=== PATIENT | female | born 1950 | race Hispanic/Latino ===

== ENCOUNTER 2017-12-16 13:34 | Outpatient (CLI) | payer OTHER, MEDICARE ==
--- NOTE | 2017-12-16 15:43 | Ultrasound Report ---
BILATERAL BREAST ULTRASOUND: 12/16/17 13:34:00 CLINICAL: Bilateral circumscribed densities on recent mammogram. COMPARISON: 09/16/17 screening mammogram FINDINGS: Ultrasound of the right breast(including all four quadrants and the retroareolar area) was performed and demonstrated numerous benign cysts which correspond to the mammographic findings. A retroareolar cyst measures 1.8 x 1.5 x 1.1 cm. The distal retroareolar cysts measure 5 x 6 x 5 mm and 10 x 7 x 9 mm. A cyst at 6 o'clock 3 cm from the nipple measures 7 x 3 x 6 mm. A cyst at 8 o'clock 7.5 cm from the nipple measures 4 x 4 x 5 mm. A cyst at 10 o'clock measures 8 x 5 x 9 mm and a cyst with a thick echogenic wall at 11 o'clock 5 cm from the nipple measures 1.5 x 1.3 x 1.5 cm. No solid mass or shadowing. Ultrasound of the left breast (including all four quadrants and the retroareolar area) was performed and demonstrated numerous benign cysts which correlate with the mammographic findings. The largest cyst is at 1 o'clock 4 cm from the nipple and measures 2.8 x 2.4 x 1.4 cm. A cyst at 12 o'clock 4 cm from the nipple measures 1.5 x 1.2 cm. A cyst at 2 o'clock 7 cm from the nipple measures 1.6 x 0.8 x 1.6 cm. A cyst at 3 o'clock 6 cm from the nipple measures 1.0 x 0.6 x 0.8 cm. No solid mass or shadowing. IMPRESSION: Bilateral benign cysts and no suspicious finding. BI-RADS 2 - - Benign RECOMMENDATION: Routine mammographic screening with a bilateral mammogram in September 2018.
== END 2017-12-16 13:35 | disposition home or self-care (01) ==
LOC: SPVWC 13:34
PROVIDERS: ATTEND Internal Medicine
DX: N60.01 Solitary cyst of right breast (principal); N60.02 Solitary cyst of left breast

== ENCOUNTER 2020-04-15 15:03 | Outpatient (CLI) | payer MEDICARE | END 2020-04-15 15:04 | disposition home or self-care (01) | LOC: SPVWC 15:03 | PROVIDERS: ATTEND Internal Medicine | DX: Z12.31 Encounter for screening mammogram for malignant neoplasm of breast (principal) | CPT/HCPCS: 77067 ==

== ENCOUNTER 2020-12-02 09:51 | Outpatient (CLI) | payer MEDICARE ==
--- NOTE | 2020-12-02 12:16 | Mammography Report ---
BILATERAL DIGITAL DIAGNOSTIC MAMMOGRAM WITH CAD CONVENTIONAL, 12/02/2020 BILATERAL COMPLETE BREAST ULTRASOUND CLINICAL INFORMATION / INDICATION: Patient presents for evaluation of fibrocystic breast tissue. Tana ent has no new complaints. TECHNIQUE: Digital bilateral mammographic imaging was performed. Complete ultrasound of all four (4) quadrants was performed. This examination was interpreted with the benefit of Computer-Aided Detectio n (CAD) analysis. COMPARISON: Prior mammogram 04/15/2020 and bilateral breast ultrasound 12/16/2017 FINDINGS: Breast Density: The breasts are heterogeneously dense, which may obscure small masses. MAMMOGRAPHIC FINDINGS: No dominant mass, suspicious calcifications, or architectural distortion in ei ther breast. There is stable benign-appearing nodularity and stable benign-appearing calcifications s een throughout both breasts. There has been no significant change compared with the prior examination . ULTRASOUND FINDINGS: Complete sonographic evaluation of all 4 quadrants and retroareolar region was p erformed. Right breast: Complete ultrasound of the right breast reveals numerous oval circumscribed hypoechoic masses and a few benign simple cysts. Tread Booker nodules include a 10 mm oval circumscribed mass in the 6:00 position located 2 cm from the nipple, a 12 mm oval circumscribed mass in the 7:00 posit ion located 3 cm from the nipple, a 10 mm oval circumscribed mass in the 10:00 position located 2 cm from the nipple, and a 12 mm oval circumscribed mass in the 10:00 position located 5 cm from the nip ple. No dominant suspicious mass identified. Left breast: Complete ultrasound of the left breast reveals numerous benign simple cysts and oval cir cumscribed hypoechoic masses. The largest benign simple cyst is in the 1:00 position located 3 cm fro m the nipple measuring up to 1.9 cm, and the largest hypoechoic nodule is in the 1:00 position locate d 2 cm from the nipple measuring up to 8mm. No dominant suspicious mass identified. IMPRESSION: 1. 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 No dominant suspicious mass iden tified in either breast. Follow up recommendation: Routine yearly BI-RADS Category 2: Benign. A "normal" or negative report should not discourage follow up or biopsy of a clinically significant f inding. A written summary of these findings will be mailed to the patient. The patient will be entered into a mammography reporting system which will generate a reminder letter for the patient's next appointmen t at the appropriate interval. According to the [employer], yearly mammograms are recommended starting at age 40 and continuing as long as a woman is in good health. Breast MRI is recommended for women with an julio roximately 20-25% or greater lifetime risk of breast cancer, including women with a strong family his tory of breast or ovarian cancer and women who have been treated for Hodgkin's disease. Signer Name: Ana Self MD Signed: 12/02/2020 12:12 PM Workstation Name: [id number]
== END 2020-12-02 09:52 | disposition home or self-care (01) ==
LOC: SPVWC 09:51
PROVIDERS: ATTEND Internal Medicine
DX: R92.2 Inconclusive mammogram (principal); N63.11 Unspecified lump in the right breast, upper outer quadrant; N60.02 Solitary cyst of left breast; N63.12 Unspecified lump in the right breast, upper inner quadrant
CPT/HCPCS: 77066

== ENCOUNTER 2021-12-29 09:56 | Outpatient (CLI) | payer MEDICARE ==
--- NOTE | 2021-12-30 11:47 | Mammography Report ---
DIGITAL SCREENING MAMMOGRAM WITH TOMOSYNTHESIS WITH CAD, 12/29/2021 CLINICAL INFORMATION / INDICATION: Routine Screening Mammography. TECHNIQUE: Digital bilateral 2D and 3D mammography with tomosynthesis was obtained in the craniocaud al and mediolateral oblique projections. Computer-Aided Detection (CAD) analysis was used for interp retation of this study. COMPARISON: 04/15/2020 and 09/16/2017 FINDINGS: Breast Density: The breasts are heterogeneously dense, which may obscure small masses. No dominant mass, suspicious calcifications, or architectural distortion in either breast. Largely unchanged nodular densities in the breasts, commonly fibroglandular or fibrocystic change. Scattered calcifications again noted in both breasts. IMPRESSION: No mammographic evidence of malignancy. Follow up recommendation: Routine yearly BI-RADS Category 2: BENIGN. A "normal" or negative report should not discourage follow up or biopsy of a clinically significant f inding. A written summary of these findings will be mailed to the patient. The patient will be entered into a mammography reporting system which will generate a reminder letter for the patient's next appointmen t at the appropriate interval. The [employer] recommends yearly mammograms starting at age 40 and continuing as l yesi as a woman is in good health. Breast MRI is recommended for women with an approximate 20-25% or greater lifetime risk of breast cancer, including women with a strong family history of breast or ova elizabeth cancer or who have been treated for Hodgkin's disease. Signer Name: Km Rizo MD Signed: 12/30/2021 10:25 AM Workstation Name: [id number]
== END 2021-12-29 09:57 | disposition home or self-care (01) ==
LOC: SPVWC 09:56
PROVIDERS: ATTEND Internal Medicine
DX: Z12.31 Encounter for screening mammogram for malignant neoplasm of breast (principal); N64.89 Other specified disorders of breast
CPT/HCPCS: 77063; 77067